=== PATIENT | male | born 1985 | race Hispanic/Latino ===

== ENCOUNTER 2019-04-26 12:51 | Emergency (ER) | payer BC ==
[2019-04-26] MEDS ORDERED: Adacel (T-DAP) 0.5 ML SYRINGE ONE (13:21)
== END 2019-04-26 13:35 | disposition home or self-care (01) ==
LOC: MADERS 12:51
DX: T63.2X1A Toxic effect of venom of scorpion, accidental (unintentional), initial encounter (principal)
CPT/HCPCS: 90471; 90715